=== PATIENT | male | born 1995 | race Caucasian/White ===

== ENCOUNTER 2020-07-16 08:50 | Day surgery (SDC) | payer OTHER ==
[~2020-07-16] VITALS: Ht 177.8 cm; Wt 142.0 kg
[2020-07-16] MEDS ORDERED: METPHE27ER PO (09:29)
[2020-07-16] MEDS ORDERED: THYR60 PO (09:29)
== END 2020-07-16 12:03 | disposition home or self-care (01) ==
LOC: ORSCSDS 08:50 → ORD 10:00 → ORSCSDS 12:03
DX: J34.89 Other specified disorders of nose and nasal sinuses (principal); J34.3 Hypertrophy of nasal turbinates; E66.01 Morbid (severe) obesity due to excess calories; Z68.41 Body mass index [BMI] 40.0-44.9, adult; F90.9 Attention-deficit hyperactivity disorder, unspecified type; Z79.899 Other long term (current) drug therapy
CPT/HCPCS: J0171; J1100; J2250; J2405; J2704; J3010; J7120